=== PATIENT | male | born 1985 | race Two or more races ===

== ENCOUNTER 2025-01-03 19:05 | Emergency (ER) | payer OTHER ==
[~2025-01-03] VITALS: Ht 167.6 cm; Wt 87.1 kg
[2025-01-03] MEDS ORDERED: CEFTRIAXONE SODIUM 1,000 MG VIAL ONE (20:49)
[2025-01-03] MEDS ORDERED: KETOROLAC TROMETHAMINE 60 MG VIAL IM ONE ×2 (20:49→21:00)
[2025-01-03] MEDS ORDERED: CEFUROXIME500 MG PO (20:50)
[2025-01-03] MEDS ORDERED: PEPCID AC20 MG PO (20:50)
[2025-01-03] MEDS ORDERED: CEFTRIAXONE SODIUM 1,000 MG VIAL IM ONE (21:00)
== END 2025-01-03 21:05 | disposition home or self-care (01) ==
LOC: ER 19:06
DX: L02.31 Cutaneous abscess of buttock (principal)

== ENCOUNTER → 2025-01-07 14:09 | Outpatient (CLI) | payer OTHER ==
[~2025-01-07 14:09] MED LIST: CEFUROXIME500 MG PO; PEPCID AC20 MG PO
== END | disposition home or self-care (01) ==
LOC: LAB 14:09
PROVIDERS: ATTEND Specialist
DX: L02.91 Cutaneous abscess, unspecified (principal)

== ENCOUNTER → 2025-03-06 | Emergency (ER) | payer OTHER ==
[~2025-03-06] VITALS: Ht 167.6 cm; Wt 84.4 kg
[~2025-03-06] MED LIST changes: +ACETAMINOPHEN 325 MG TABLET PO ONE; +ACETAMINOPHEN 500 MG GEL..CAP PO ONE; +CEFTRIAXONE SODIUM 1,000 MG VIAL IM ONE; +CEFTRIAXONE SODIUM 2,000 MG VIAL ONE; +CETIRIZINE HCL 5 MG/5 ML ML PO ONE; +CETIRIZINE HCL 5MG/5ML BLIST.PACK PO ONE; +OSEL75CA PO; +ZYRTEC10 MG PO
[2025-03-06 21:56] LABS: BASO % 0.1 % (0.1-1.2); EOS # 0.02 (0.04-0.54); EOS % 0.3 % (0.7-7.0); HEMATOCRIT 43.9 % (40.1-51.0); HEMOGLOBIN 14.7 g/dL (13.7-17.5); LYMPH % 10.3 % (19.3-53.1); MEAN CORPUSCULAR HEMOGLOBIN 31.1 pg (25.6-32.2); MONO # 0.77 (0.24-0.82); MONO % 11.4 % (4.7-12.5); NEUT # 5.25 (1.56-6.13); NEUT % 77.5 % (34.0-71.1); PLATELET COUNT 233 K/uL (163-369); RED BLOOD COUNT 4.72 M/uL (4.63-6.08); RED CELL DISTRIBUTION WIDTH 12.6 % (11.6-14.4)
[2025-03-06 22:58] LABS: INFLUENZA B AG NEGATIVE (NEGATIVE)
[2025-03-06 22:59] LABS: INFLUENZA A AG POSITIVE (NEGATIVE)
[2025-03-06 23:02] LABS: COVID-19 AG NEGATIVE (NEGATIVE)
== END | disposition home or self-care (01) ==
LOC: ER 19:04
PROVIDERS: General Practice
DX: J00 Acute nasopharyngitis [common cold] (principal); R50.9 Fever, unspecified; Z20.822 Contact with and (suspected) exposure to COVID-19